=== PATIENT | male | born 1980 | race Caucasian/White ===

== ENCOUNTER 2016-10-18 20:18 | Emergency (ER) | payer OTHER ==
[~2016-10-18] VITALS: Ht 180.3 cm; Wt 91.6 kg
[~2016-10-18 20:18] MED LIST: ULT/50 PO
[2016-10-18 20:27] VITALS: Ht 180.3 cm; Wt 91.6 kg
[2016-10-18] MEDS ORDERED: KETOROLAC TROMETHAMINE 60 MG/2 ML VIAL IM STA (21:32)
[2016-10-18] MEDS ORDERED: HYDROCODONE/ACETAMOPHEN 5/325MG TAB PO STA (21:32)
--- NOTE | 2016-10-18 21:54 | DIAGNOSTIC IMAGING REPORT ---
LUMBAR SPINE 5 VIEWS HISTORY: Back pain lbp COMPARISON: None. FINDINGS: There is no fracture. No subluxation. Disc spaces are preserved. IMPRESSION: No fracture or subluxation within the lumbar spine. Electronically signed by: Giorgio Ascencio M.D. 10/18/2016 9:53 PM Dictated Date/Time: 10/18/2016 9:52 PM
--- NOTE | 2016-10-18 22:07 | EMERGENCY ROOM VISIT NOTE ---
ED Visit Note First contact with patient: 20:43 CHIEF COMPLAINT: Low back pain since this afternoon HISTORY OF PRESENT ILLNESS: Patient is a 36-year-old white male who presents to the emergency department for evaluation of low back pain that started this afternoon. He denies any inciting incident or trauma to the back. He notes pain in the midline of his low spine does not radiate. It is worse with movement. He tried taking 2 Aleve without relief. He denies any history of low back problems. He reports that he was shoveling stone a week and a half ago but otherwise denies any unusual activity prior to the onset of his pain. He rates his pain a 8/10. He denies any radiation of the pain to the leg or to the buttocks. No numbness, tingling or weakness into the lower extremities. No bowel or bladder incontinence. No saddle anesthesias. He denies any urinary symptoms. REVIEW OF SYSTEMS: Review of systems as per HPI. All other systems reviewed were negative. 10 systems reviewed. PMH: Electronic medical records are reviewed and summarized as above/below. See Problem List. SOCIAL HISTORY: Patient lives at home. Former smoker. PHYSICAL EXAM: Vital Signs: Reviewed Nurse's notes. MENTAL STATUS: Uncomfortable appearing 36-year-old white male who was awake and alert and laying on the gurney in mild distress due to his back pain. HEART: Regular rate and rhythm. LUNGS: Clear to auscultation. ABDOMEN: Soft, non-tender, no masses or organs felt. Bowel sounds normoactive. BACK: Tenderness in the paraspinous muscles in the lumbar area. No tenderness over the spinous processes of the lumbar vertebrae. He has discomfort with flexion, rotation and lateral bending. LEGS: Normal strength including dorsi-flexion and plantar flexion of the great toes and ankles, flexion and extension of the knees and flexion of the hips.. Negative bilateral straight leg raising, normal and symmetrical knee and ankle reflexes. EMERGENCY DEPARTMENT COURSE: Patient was medicated with Toradol 60 mg IM and [place] 5/325 mg one tablet by mouth. Lumbar spine x-rays were obtained and were unremarkable. Supportive care measures were discussed. MEDICAL DECISION MAKING : I do not suspect acute compression syndrome, cauda equina, diskitis, epidural abscess, hematoma or neurovascular compromise. The patient was discharged home with his significant other driving. He was advised to follow-up with his primary care provider if his symptoms are not improving. He rated his pain a 4/ 10 at discharge. Patient was reviewed in the [facility] Prescription Drug Monitoring Program, and there was no record for this patient. LUMBAR SPINE 5 VIEWS HISTORY: Back pain lbp COMPARISON: None. FINDINGS: There is no fracture. No subluxation. Disc spaces are preserved. IMPRESSION: No fracture or subluxation within the lumbar spine. Problem List Medical Problems: (1) Contusion of mid back Status: Resolved (2) Fall Status: Resolved (3) Left shoulder pain Status: Resolved Surgical Problems: (1) H/O shoulder surgery Status: Resolved Current/Historical Medications Scheduled PRN Cyclobenzaprine Hcl (Flexeril), 10 MG PO TID PRN for Muscle Spasms Hydrocodone/Acetaminophen 5MG/325MG ([place] 5MG/325MG), 1-2 TABLETS PO Q4 PRN for Pain Allergies Coded Allergies: No Known Allergies (Unverified , 10/18/16) Vital Signs Date Time Temp Pulse Resp B/P Pulse Ox O2 Delivery O2 Flow Rate FiO2 10/18/16 22:43 36.8 71 20 128/88 98 10/18/16 22:42 71 20 128/88 98 Room Air 10/18/16 20:27 36.8 71 20 139/81 98 Room Air Medications Administered Medications (Trade) Dose Ordered Sig/Ivy Route Start Time Stop Time Status Last Admin Dose Admin Ketorolac Tromethamine (Toradol Inj) 60 mg NOW STAT IM 10/18/16 21:32 10/18/16 21:33 DC 10/18/16 21:40 60 MG Acetaminophen/ Hydrocodone Bitart ([place] 5/325 Tab) 1 tab NOW STAT PO 10/18/16 21:32 10/18/16 21:34 DC 10/18/16 21:39 1 TAB Acetaminophen/ Hydrocodone Bitart ([place] 5/325mg Home Pack) 1 homepack UD ONCE PO 10/18/16 22:30 10/18/16 22:31 DC 10/18/16 22:38 1 HOMEPACK Cyclobenzaprine HCl (FLEXERIL 10MG Home Pack) 1 homepack UD ONCE PO 10/18/16 22:30 10/18/16 22:31 DC 10/18/16 22:38 1 HOMEPACK Departure Information Impression Primary Impression: Low back pain Prescriptions Cyclobenzaprine Hcl (FLEXERIL) 10 Mg Tab 10 MG PO TID Y for Muscle Spasms, #20 TAB Prov: Renetta Barahona PA 10/18/16 Hydrocodone/Acetaminophen 5MG/325MG ([place] 5MG/325MG) Tab 1-2 TABLETS PO Q4 Y for Pain, #20 TAB For Initial Treatment Prov: Renetta Barahona PA 10/18/16 Referrals David Faria M.D. (PCP) Patient Instructions My [facility] Additional Instructions DO NOT drive, drink alcohol, operate machinery, or perform dangerous activities today. You were given medications in the ER that can affect your ability to safely function or operate a vehicle. Hydrocodone/Acetaminophen ([place]) 5/325 mg: Take 1-2 pills every four hours for breakthrough pain. Avoid alcohol, operating machinery or dangerous equipment, working on ladders or roofs, DRIVING, or situations where being under the influence may be dangerous. It is recommended to use an fsca-[id number]-vnqhggt stool softener such as Colace, 100mg twice daily while taking this medication to avoid constipation. Cyclobenzaprine (Flexeril) 10 mg: Take 1 pills 3 times daily as needed for muscle spasms.. Avoid alcohol, operating machinery or dangerous equipment, working on ladders or roofs, DRIVING, or situations where being under the influence may be dangerous. Ibuprofen(Motrin, Advil) may be used for fever or pain. Use 600mg every six hours as needed. Take with food. Avoid using more than 2400mg in a 24 hour period. Do not use 2400mg per day for more than three consecutive days without physician direction. Prolonged inappropriate use can lead to stomach upset or ulcers. This medication can be taken if you need to drive, work, or perform activities which may be dangerous when taking narcotic pain medication. (AND/OR) Acetaminophen(Tylenol) may be used for fever or pain. Use 1000mg every six hours as needed. Avoid using more than 3000mg in a 24 hour period. This medication can be taken if you need to drive, work, or perform activities which may be dangerous when taking narcotic pain medication. Rest and avoid heavy lifting until your symptoms resolve and then gradually return to full activity. A good rule of thumb is if it hurts your back to perform a certain activity, then it should be avoided until you are healthy again. A heating pad, warm compresses, or a hot shower may help with tight muscles and can be done several times a day as needed. Continue current medications. Return to the ER immediately for any numbness, tingling, severe pain, loss of control of your bowels or bladder, inability to walk, or as needed. Follow up with your primary care physician within 3-5 days for a recheck of your current condition. Problem Qualifiers Primary Impression: Low back pain Chronicity: acute Back pain laterality: midline Sciatica presence: without sciatica Qualified Codes: M54.5 - Low back pain
[2016-10-18] MEDS ORDERED: CYCL10TA6 PO (22:25)
[2016-10-18] MEDS ORDERED: HYDR-5688 PO (22:25)
[2016-10-18] MEDS ORDERED: NORCO 5/325MG HOME PACK PO ONE (22:30)
[2016-10-18] MEDS ORDERED: FLEXERIL HOME PACK 10 MG VIAL PO ONE (22:30)
[2016-10-18 22:43] VITALS: BP 128/88; PULSE 71; TEMP 36.8; O2SAT 98
== END 2016-10-18 22:44 | disposition home or self-care (01) ==
LOC: C.EDB 20:19 → C.EDD 22:44
DX: M54.5 Low back pain (principal); Z87.891 Personal history of nicotine dependence

== ENCOUNTER 2017-02-10 14:31 | Emergency (ER) | payer OTHER ==
[~2017-02-10] VITALS: Ht 180.3 cm; Wt 109.1 kg
[~2017-02-10 14:31] MED LIST changes: +HYDR-5688 PO; -ULT/50 PO
[2017-02-10 14:39] VITALS: Ht 180.3 cm; Wt 109.1 kg
--- NOTE | 2017-02-10 15:49 | DIAGNOSTIC IMAGING REPORT ---
RIGHT KNEE 3 VIEWS HISTORY:36 yearsMaleRight knee pain Right COMPARISON: None available TECHNIQUE: Frontal, crosstable lateral and sunrise views of the right knee. FINDINGS: There is a 5 mm corticated ossicle adjacent to the medial patella. Mild tricompartmental marginal spurring is noted about the knee without significant joint space narrowing. Bone mineralization is within normal limits without acute fracture or dislocation. There is mild soft tissue swelling about the knee without large joint effusion. IMPRESSION: 1. Mild soft tissue swelling about the knee without acute fracture or dislocation. 2. 5 mm corticated ossicle is noted adjacent to the medial patella. The above report was generated using voice recognition software. It may contain grammatical, syntax or spelling errors. Electronically signed by: Mulugeta Cheatham M.D. 02/10/2017 3:48 PM Dictated Date/Time: 02/10/2017 3:46 PM
[2017-02-10] MEDS ORDERED: HYDROCODONE/ACETAMOPHEN 5/325MG TAB PO ONE (16:15)
[2017-02-10] MEDS ORDERED: HYDR-5688 PO (17:18)
--- NOTE | 2017-02-10 17:37 | EMERGENCY ROOM VISIT NOTE ---
ED Visit Note First contact with patient: 15:04 CHIEF COMPLAINT: knee pain HISTORY OF PRESENT ILLNESS: This 36 year old male patient presents to the emergency department after sustaining an injury to the right knee a few days ago. The patient has an extensive history of injury to this knee that has required orthopedic scoping and MRI. He has a known tear of his meniscus medially. The patient denies any other injuries besides their knee. The patient is without swelling or bruising. There is pain medially. They rate the pain as dull and 5/10. The patient states they are able to walk on it. No numbness or tingling. No previous injuries to this knee. No ankle, foot or hip pain. The pain worsens with ambulation and improves with rest. REVIEW OF SYSTEMS: A 6 system review of systems was completed with positives and pertinent negatives listed in the HPI. ALLERGIES: No known allergies MEDICATIONS: No chronic medications PMH: Otherwise healthy SOCIAL HISTORY: History of chronic right knee pain PHYSICAL EXAM: Vital Signs: Reviewed Nurse's notes, vital signs stable. GENERAL : White male, no acute distress, but appears in pain, well-developed, well- nourished. MENTAL STATUS: Alert, oriented to person place and time, and cooperative. MUSCULOSKELETAL: The right knee is minimally swollen. There is no ecchymosis. There is no joint effusion present. The patient is tender medially. There is no joint line tenderness. The patella does not subluxate. Range of motion is normal. Strength of the quads and hamstrings is 5/5. Leanne' s is negative. Caleb's and Anterior Drawer tests are negative. There is no laxity with varus and valgus stressing. The foot and toes are warm and well- perfused. Dorsalis pedis pulse 2+. Sensation to pain and light touch is intact. Capillary refill less than 2 seconds. RIGHT KNEE 3 VIEWS HISTORY:36 yearsMaleRight knee pain Right COMPARISON: None available TECHNIQUE: Frontal, crosstable lateral and sunrise views of the right knee. FINDINGS: There is a 5 mm corticated ossicle adjacent to the medial patella. Mild tricompartmental marginal spurring is noted about the knee without significant joint space narrowing. Bone mineralization is within normal limits without acute fracture or dislocation. There is mild soft tissue swelling about the knee without large joint effusion. IMPRESSION: 1. Mild soft tissue swelling about the knee without acute fracture or dislocation. 2. 5 mm corticated ossicle is noted adjacent to the medial patella. EMERGENCY DEPARTMENT COURSE: Physical exam and history were performed. Nursing notes and EMR were reviewed. The patient appears to have right knee pain for the past several days. He does not have obvious signs of infection. X -ray was obtained and does not show evidence of acute fracture or dislocation. The patient has followed with orthopedics in [facility] for ongoing knee issues. He has a known injury to the medial meniscus, and does have tenderness in this distribution. The patient has a knee brace that he may continue to use from home. I will provide him with crutches as well as a short course of Vicodin for pain control. The patient was otherwise instructed on conservative measures and given additional discharge instructions as below. The patient was pleased with plan of care and rated his discomfort a 1/10 at the time of departure. Problem List Medical Problems: (1) Contusion of mid back Status: Resolved (2) Fall Status: Resolved (3) Left shoulder pain Status: Resolved Surgical Problems: (1) H/O shoulder surgery Status: Resolved Current/Historical Medications Scheduled PRN Hydrocodone/Acetaminophen 5MG/325MG ([place] 5MG/325MG), 1 TABLET PO Q6 PRN for Pain Allergies Coded Allergies: No Known Allergies (Unverified , 10/18/16) Vital Signs Date Time Temp Pulse Resp B/P (MAP) Pulse Ox O2 Delivery O2 Flow Rate FiO2 02/10/17 14:39 36.8 92 17 136/82 96 Room Air Medications Administered Medications (Trade) Dose Ordered Sig/Ivy Route Start Time Stop Time Status Last Admin Dose Admin Acetaminophen/ Hydrocodone Bitart ([place] 5/325 Tab) 1 tab NOW ONCE PO 02/10/17 16:15 02/10/17 16:16 DC 02/10/17 16:09 1 TAB Departure Information Impression Primary Impression: Right knee pain Dispostion Home / Self-Care Condition GOOD Prescriptions Hydrocodone/Acetaminophen 5MG/325MG ([place] 5MG/325MG) Tab 1 TABLET PO Q6 Y for Pain, #12 TAB For Initial Treatment Prov: Robert Lincoln PA-C 02/10/17 Forms HOME CARE DOCUMENTATION FORM, IMPORTANT VISIT INFORMATION Patient Instructions My [facility] Additional Instructions You were seen and evaluated today on an emergency basis only. This is not a substitute for, or an effort to provide, complete comprehensive medical care. It is not possible to recognize and treat all injuries or illnesses in a single emergency department visit. For this reason it is recommended that you followup with your orthopedist by telephone tomorrow to arrange a follow-up in the next week. Continue using your brace. Use your crutches for the next 4-5 days. For baseline pain relief you may alternate ibuprofen and acetaminophen every 4 hours for pain control. Take 600 mg ibuprofen (Advil) and then 4 hours later take 1000 mg acetaminophen (Tylenol). Do not take more than 3000 mg acetaminophen in a single day. [place] (hydrocodone/acetaminophen) 5/325 mg every 6 hours as needed for worsening breakthrough pain. Do not drink or drive on [place]. This medication will likely make you tired. Do not take [place] and Tylenol at the same time as both contain acetaminophen. [place] may cause constipation. You may wish to take an [id number]-[id number]-[id number] stool softener like Colace if this occurs. You are welcome to return to the emergency department anytime with new, worsening, or concerning symptoms.
[2017-02-10 17:46] VITALS: BP 136/82; PULSE 92; TEMP 36.8; O2SAT 96
== END 2017-02-10 17:57 | disposition home or self-care (01) ==
LOC: C.EDB 14:36 → C.EDA 17:57
DX: M25.561 Pain in right knee (principal); G89.29 Other chronic pain

== ENCOUNTER 2017-04-19 12:01 | Emergency (ER) | payer OTHER ==
[~2017-04-19] VITALS: Ht 180.3 cm; Wt 115.8 kg
[2017-04-19 12:09] VITALS: TEMP 36.5; Ht 180.3 cm; Wt 115.8 kg
[2017-04-19] MEDS ORDERED: HYDROCODONE/ACETAMOPHEN 5/325MG TAB PO STA (12:19)
--- NOTE | 2017-04-19 12:47 | DIAGNOSTIC IMAGING REPORT ---
LEFT RIBS UNILATERAL WITH PA CHEST CLINICAL HISTORY: rib injury trauma. Pain. COMPARISON STUDY: None FINDINGS: Normal study IMPRESSION: Normal study The above report was generated using voice recognition software. It may contain grammatical, syntax or spelling errors. Electronically signed by: Giorgio Ascencio M.D. 04/19/2017 12:46 PM Dictated Date/Time: 04/19/2017 12:44 PM
[2017-04-19] MEDS ORDERED: HYDR-5688 PO (12:56)
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
[2017-04-19 13:18] VITALS: BP 122/87; PULSE 81; O2SAT 96
== END 2017-04-19 13:19 | disposition home or self-care (01) ==
LOC: C.EDB 12:02 → C.EDD 13:19
DX: S20.212A Contusion of left front wall of thorax, initial encounter (principal); V57.0XXA Driver of pick-up truck or van injured in collision with fixed or stationary object in nontraffic accident, initial encounter; Y92.821 Forest as the place of occurrence of the external cause; Z87.891 Personal history of nicotine dependence

== ENCOUNTER 2017-06-19 13:19 | Emergency (ER) | payer OTHER ==
[~2017-06-19] VITALS: Ht 182.9 cm; Wt 116.9 kg
[2017-06-19 13:38] VITALS: TEMP 36.6; Ht 182.9 cm; Wt 116.9 kg
[2017-06-19] MEDS ORDERED: MoRPHine SULFATE 10 MG/ML CARP/VIAL IV STA (14:06)
[2017-06-19] MEDS ORDERED: ONDANSETRON INJ 2 MG/ML 2 ML VIAL IV STA (14:06)
[2017-06-19] MEDS ORDERED: KETOROLAC TROMETHAMINE 30 MG/ML VIAL IV STA (14:13)
[2017-06-19 14:26] LABS: BASO % 0.8 %; BASO ABS # 0.04 K/uL (0-0.2); COMPLETE YES; EOS % 1.7 %; IG% 0.2 %; LYMPH % 28.5 %; LYMPH ABS # 1.47 K/uL (1.2-3.4); MEAN CORPUSCULAR HEMOGLOBIN 31.5 pg (25-34); MEAN CORPUSCULAR HGB CONC 34.3 g/dl (32-36); MEAN PLATELET VOLUME 9.5 fL (7.4-10.4); MONO % 11.6 %; NEUT % 57.2 %; PLATELET COUNT 234 K/uL (130-400); RED BLOOD COUNT 5.11 M/uL (4.7-6.1); WHITE BLOOD COUNT 5.16 K/uL (4.8-10.8)
[2017-06-19 14:50] LABS: BLOOD UREA NITROGEN 13 mg/dl (7-18); BUN/CREATININE RATIO 11.9 (10-20); CALCIUM 8.3 mg/dl (8.5-10.1); CARBON DIOXIDE 27 mmol/L (21-32); CHLORIDE 107 mmol/L (98-107); CREATININE 1.06 mg/dl (0.60-1.40); GLUCOSE 89 mg/dl (70-99); POTASSIUM 4.3 mmol/L (3.5-5.1); SODIUM 140 mmol/L (136-145)
[2017-06-19 14:51] LABS: C-REACTIVE PROTEIN < 0.29 mg/dl (0-0.29)
--- NOTE | 2017-06-19 15:22 | DIAGNOSTIC IMAGING REPORT ---
MRI CERVICAL WITHOUT CONTRAST CLINICAL HISTORY: Severe neck pain and left arm numbness. TECHNIQUE: Sagittal and axial T1, T2 and STIR images were obtained. COMPARISON STUDY: No previous studies for comparison. There are no suspicious areas of marrow replacement. No intrinsic cervical cord lesions are visualized. C2-3: There is no evidence of disc bulge or focal herniation. There is no spinal or foraminal stenosis. C3-4: There is no evidence of disc bulge or focal herniation. There is no spinal or foraminal stenosis. C4-5: There are no disc bulges or focal herniations. There is no spinal or foraminal stenosis. C5-6 :There are no disc bulges or focal herniations. There is no spinal or foraminal stenosis. C6-7: There is no evidence of disc bulge or focal herniation. There is no evidence of spinal or foraminal stenosis. C7-T1: There is no evidence of disc bulge or focal herniation. There is no evidence of spinal or foraminal stenosis. There is a maxillary sinus retention cyst. IMPRESSION:Normal MRI of the cervical spine. Electronically signed by: Bob Donaldson M.D. 06/19/2017 3:21 PM Dictated Date/Time: 06/19/2017 3:17 PM
[2017-06-19] MEDS ORDERED: DIAZEPAM 5MG TAB PO STA (15:26)
[2017-06-19] MEDS ORDERED: CYCL10TA6 PO (15:53)
[2017-06-19] MEDS ORDERED: OXYC1TAB3 PO (15:53)
[2017-06-19 16:00] VITALS: BP 134/94; PULSE 60; O2SAT 95
--- NOTE | 2017-06-19 16:11 | EMERGENCY ROOM VISIT NOTE ---
History Report prepared by Saman: Jess Alexis Under the Supervision of: Dr. Jimbo Echols M.D. First contact with patient: 13:59 Chief Complaint: NECK PAIN Stated Complaint: SEVERE NECK PAIN History of Present Illness The patient is a 37 year old male who presents to the Emergency Room with complaints of worsening neck pain beginning a week ago. The patient denies any recent falls or trauma. Presently, the patient rates his pain as a 9/10. When the patient's pain began a week ago he thought he may have just slept on it "wrong". His pain worsens when he moves his head. The patient took Motrin with no relief. The patient reports intermittent numbness in his left arm that radiates to his hand. Pt denies LOC, headache, fevers, chills, diaphoresis, visual changes, chest pain, breathing difficulties, nausea, vomiting, abdominal pain, back pain, melena, hematochezia, urinary symptoms, weakness, lymphadenopathy, rash, or other complaints. Source of History: patient Onset: a week ago Position: neck Symptom Intensity: 9/10 Timing: worsening Modifying Factors (Worsening): movement Modifying Factors (Relieving): other (none) Associated Symptoms: + neck pain, + numbness (in left arm) Review of Systems See HPI for pertinent positives and negatives. A total of ten systems were reviewed and were otherwise negative. Past Medical & Surgical Medical Problems: (1) Contusion of mid back (2) Fall (3) Left shoulder pain (4) No Known Active Medical Problems Surgical Problems: (1) H/O shoulder surgery Family History No pertinent family history stated. Social History Smoking Status: Never Smoker Marital Status: in relationship Housing Status: lives with significant other Current/Historical Medications Scheduled PRN Cyclobenzaprine Hcl (Flexeril), 10 MG PO TID PRN for Muscle Spasms Oxycodone Ir (Roxicodone Ir), 1-2 TAB PO Q4H PRN for Pain Allergies Coded Allergies: No Known Allergies (Unverified , 06/19/17) Physical Exam Vital Signs Date Time Temp Pulse Resp B/P (MAP) Pulse Ox O2 Delivery O2 Flow Rate FiO2 06/19/17 16:00 60 18 134/94 95 06/19/17 15:26 63 18 116/89 96 Room Air 06/19/17 13:38 36.6 69 18 159/110 98 Room Air Physical Exam GENERAL: Awake, alert, uncomfortable-appearing, in no distress HENT: Normocephalic, atraumatic. Oropharynx unremarkable. EYES: Normal conjunctiva. Sclera non-icteric. NECK: ROM limited, mild cervical tenderness, positive compression test, mild relief with distraction. RESPIRATORY: Clear to auscultation. CARDIAC: Regular rate, normal rhythm. Extremities warm and well perfused. Pulses equal. ABDOMEN: Soft, non-distended. No tenderness to palpation. No rebound or guarding. No masses. RECTAL: Deferred. MUSCULOSKELETAL: Chest examination reveals no tenderness. The back is symmetrical on inspection without obvious abnormality. There is no CVA tenderness to palpation. No joint edema. LOWER EXTREMITIES: Calves are equal size bilaterally and non-tender. No edema. No discoloration. NEURO: Normal sensorium. No sensory or motor deficits noted. SKIN: No rash or jaundice noted. Medical Decision & Procedures ER Provider Diagnostic Interpretation: Radiology results as stated below per my review and radiologist interpretation: MRI CERVICAL WITHOUT CONTRAST COMPARISON STUDY: No previous studies for comparison. There are no suspicious areas of marrow replacement. No intrinsic cervical cord lesions are visualized. C2-3: There is no evidence of disc bulge or focal herniation. There is no spinal or foraminal stenosis. C3-4: There is no evidence of disc bulge or focal herniation. There is no spinal or foraminal stenosis. C4-5: There are no disc bulges or focal herniations. There is no spinal or foraminal stenosis. C5-6 :There are no disc bulges or focal herniations. There is no spinal or foraminal stenosis. C6-7: There is no evidence of disc bulge or focal herniation. There is no evidence of spinal or foraminal stenosis. C7-T1: There is no evidence of disc bulge or focal herniation. There is no evidence of spinal or foraminal stenosis. There is a maxillary sinus retention cyst. IMPRESSION:Normal MRI of the cervical spine. Electronically signed by: Bob Donaldson M.D. Laboratory Results 06/19/17 14:15 Red Blood Count 5.11, Mean Corpuscular Volume 92.0, Mean Corpuscular Hemoglobin 31.5, Mean Corpuscular Hemoglobin Concent 34.3, Mean Platelet Volume 9.5, Neutrophils (%) (Auto) 57.2, Lymphocytes (%) (Auto) 28.5, Monocytes (%) (Auto) 11.6, Eosinophils (%) (Auto) 1.7, Basophils (%) (Auto) 0.8, Neutrophils # (Auto ) 2.95, Lymphocytes # (Auto) 1.47, Monocytes # (Auto) 0.60, Eosinophils # (Auto ) 0.09, Basophils # (Auto) 0.04 06/19/17 14:15 Test 06/19/17 14:15 White Blood Count 5.16 K/uL (4.8-10.8) Red Blood Count 5.11 M/uL (4.7-6.1) Hemoglobin 16.1 g/dL (14.0-18.0) Hematocrit 47.0 % (42-52) Mean Corpuscular Volume 92.0 fL (80-100) Mean Corpuscular Hemoglobin 31.5 pg (25-34) Mean Corpuscular Hemoglobin Concent 34.3 g/dl (32-36) Platelet Count 234 K/uL (130-400) Mean Platelet Volume 9.5 fL (7.4-10.4) Neutrophils (%) (Auto) 57.2 % Lymphocytes (%) (Auto) 28.5 % Monocytes (%) (Auto) 11.6 % Eosinophils (%) (Auto) 1.7 % Basophils (%) (Auto) 0.8 % Neutrophils # (Auto) 2.95 K/uL (1.4-6.5) Lymphocytes # (Auto) 1.47 K/uL (1.2-3.4) Monocytes # (Auto) 0.60 K/uL (0.11-0.59) Eosinophils # (Auto) 0.09 K/uL (0-0.5) Basophils # (Auto) 0.04 K/uL (0-0.2) RDW Standard Deviation 43.2 fL (36.4-46.3) RDW Coefficient of Variation 12.9 % (11.5-14.5) Immature Granulocyte % (Auto) 0.2 % Immature Granulocyte # (Auto) 0.01 K/uL (0.00-0.02) Erythrocyte Sedimentation Rate 3 mm/hr (0-14) Anion Gap 6.0 mmol/L (3-11) Est Creatinine Clear Calc Drug Dose 128.4 ml/min Estimated GFR () 104.9 Estimated GFR (Non- 90.5 BUN/Creatinine Ratio 11.9 (10-20) Calcium Level 8.3 mg/dl (8.5-10.1) C-Reactive Protein < 0.29 mg/dl (0-0.29) Laboratory results reviewed by me Medications Administered Medications (Trade) Dose Ordered Sig/Ivy Route Start Time Stop Time Status Last Admin Dose Admin Ondansetron HCl (Zofran Inj) 4 mg NOW STAT IV 06/19/17 14:06 06/19/17 14:09 DC 06/19/17 14:25 4 MG Morphine Sulfate (MoRPHine SULFATE INJ) 8 mg NOW STAT IV 06/19/17 14:06 06/19/17 14:09 DC 06/19/17 14:25 8 MG Ketorolac Tromethamine (Toradol Inj) 10 mg NOW STAT IV 06/19/17 14:13 06/19/17 14:14 DC 06/19/17 14:25 10 MG Diazepam (Valium Tab) 10 mg NOW STAT PO 06/19/17 15:26 06/19/17 15:28 DC 06/19/17 15:36 10 MG ED Course 1404: The patient was evaluated in room C10. A complete history and physical exam was performed. 1406: Morphine Sulfate 8 mg IV, Zofran Inj 4 mg IV. 1413: Toradol Inj 10 mg IV. 1526: Valium Tab 10 mg PO. 1538: I updated the patient on his MRI results, he is feeling better. 1605: I reevaluated the patient. Discussed results and discharge instructions: He verbalized understanding and agreement. The patient is ready for discharge. Medical Decision Triage Nursing notes reviewed. The patient's presentation and history were concerning for neck pain. Etiologies such as cervical strain, herniated disc, epidural abscess, osteomyelitis, fracture, metastatic disease, infection, gastrointestinal, vascular, as well as others were entertained. The patient was evaluated. He complained of neck pain that has increased. It hurts with movement . It is better with rest. He has pain at sometimes extends into the arm. He has occasional numbness in the left arm. He was treated with morphine and Zofran. He was doing better with this. He is also given Toradol. The patient noted some increased spasms. This occurred after MRI. He was given a dose of oral Valium. He is blood work and imaging did not reveal any abnormal findings. He is neurologically intact. He seems to be most consistent with muscular spasms. I discussed conservative management with the patient. The patient felt comfortable. If he worsens in any way he will be back. A small prescription for oxycodone and Flexeril written. Heat, NSAIDs and Tylenol were also instructed. By the evaluation outlined above other emergent etiologies such as those listed in the differential, as well as others, were deemed relatively unlikely. The patient was educated about the findings as listed above. All questions were answered and the patient was pleased with the treatment. Return instructions were outlined and the patient was discharged in stable condition. The patient was referred to his PCP for follow-up for a recheck of the current condition. [place] Drug Monitoring Program Search Results: patient reviewed within database, no issues identified Blood Pressure Screening Patient's blood pressure: Elevated blood pressure Blood pressure disposition: Referred to PCP Impression Primary Impression: Neck pain Scribe Attestation The scribe's documentation has been prepared under my direction and personally reviewed by me in its entirety. I confirm that the note above accurately reflects all work, treatment, procedures, and medical decision making performed by me. Departure Information Dispostion Home / Self-Care Prescriptions Oxycodone Ir (Roxicodone Ir) 5 Mg Tab 1-2 TAB PO Q4H Y for Pain, #8 TAB Prov: Jimbo Echols MD 06/19/17 Cyclobenzaprine Hcl (FLEXERIL) 10 Mg Tab 10 MG PO TID Y for Muscle Spasms, #12 TAB Prov: Jimbo Echols MD 06/19/17 Referrals David Mar D.O. (PCP) Forms HOME CARE DOCUMENTATION FORM, IMPORTANT VISIT INFORMATION, WORK / SCHOOL INSTRUCTIONS Patient Instructions My [facility] Additional Instructions NECK PAIN/INJURY INSTRUCTIONS: DO NOT drive, drink alcohol, operate machinery, or perform dangerous activities today. You were given medications in the ER that can affect your ability to safely function or operate a vehicle. Oxycodone (OxyIR) 5mg: Take 1-2 pills every four hours for breakthrough pain. Avoid alcohol, operating machinery or dangerous equipment, working on ladders or roofs, DRIVING, or situations where being under the influence may be dangerous. It is recommended to use an [id number]-[id number] stool softener such as Colace, 100mg twice daily while taking this medication to avoid constipation. Flexeril 10 mg 3 times a day as needed for muscle spasm. Do not take and dry Ibuprofen(Motrin, Advil) may be used for fever or pain. Use 600mg every six hours as needed. Take with food. Avoid using more than 2400mg in a 24 hour period. Do not use 2400mg per day for more than three consecutive days without physician direction. Prolonged inappropriate use can lead to stomach upset or ulcers. This medication can be taken if you need to drive, work, or perform activities which may be dangerous when taking narcotic pain medication. (AND/OR) Acetaminophen(Tylenol) may be used for fever or pain. Use 1000mg every six hours as needed. Avoid using more than 4000mg in a 24 hour period. This medication can be taken if you need to drive, work, or perform activities which may be dangerous when taking narcotic pain medication. Rest and avoid heavy lifting until your symptoms resolve and then gradually return to full activity. A good rule of thumb is if it hurts your neck to perform a certain activity, then it should be avoided until you are healthy again. A heating pad, warm compresses, or a hot shower may help with tight muscles and can be done several times a day as needed. Continue current medications. Return to the ER immediately for any numbness, tingling, severe pain, loss of control of your bowels or bladder, inability to walk, or as needed. Follow up with your primary clinic within 3-5 days for a recheck of your current condition.
== END 2017-06-19 16:00 | disposition home or self-care (01) ==
LOC: C.EDB 13:20 → C.EDC 16:00
DX: M54.2 Cervicalgia (principal)

== ENCOUNTER 2017-06-22 12:31 | Emergency (ER) | payer OTHER ==
[~2017-06-22] VITALS: Ht 182.9 cm; Wt 110.0 kg
[~2017-06-22 12:31] MED LIST changes: +CYCL10TA6 PO; -HYDR-5688 PO; +OXYC1TAB3 PO
[2017-06-22 12:35] VITALS: TEMP 36.8; Ht 182.9 cm; Wt 110.0 kg
--- NOTE | 2017-06-22 12:46 | EMERGENCY ROOM VISIT NOTE ---
History Report prepared by Saman: Johanny Moreno Under the Supervision of: Dr. Juan David Ring D.O. First contact with patient: 12:36 Chief Complaint: BACK PAIN Stated Complaint: NECK AND BACK PAIN History of Present Illness The patient is a 37 year old male who presents to the Emergency Room with complaints of neck pain. His neck pain started a week ago when he woke up with it from sleeping. He notes the pain is fairly constant but does worsen in severity. He was seen here several days ago and was prescribed Flexeril and OxyIR 5 mg orally following having a negative MRI. Associated with the neck pain he does have some intermittent paresthesias on the dorsal aspect of his left hand including all 5 digits. No recent trauma, fevers above 100.4, headaches, history of cancer, IV drug use or any other complaints. Denies any weakness in the arms and legs. Denies any recent heavy lifting. He does work cleaning houses for living but notes that this was not associated with work as he woke up with it. Pt denies change in vision, chest pain, shortness of breath , nausea, vomiting, diarrhea, pain with urination, and melena. Source of History: patient Onset: one week ago Position: neck Timing: constant, worsening Note: Associated symptoms: paresthesias Review of Systems See HPI for pertinent positives & negatives. A total of 10 systems reviewed and were otherwise negative. Past Medical & Surgical Medical Problems: (1) Contusion of mid back (2) Fall (3) Left shoulder pain (4) No Known Active Medical Problems Surgical Problems: (1) H/O shoulder surgery Family History Patient reports no known family medical history. Social History Smoking Status: Never Smoker Smokeless Tobacco Use: Yes Alcohol Use: none Marital Status: in relationship Housing Status: lives with significant other Current/Historical Medications Scheduled Prednisone (Prednisone), 50 MG PO DAILY Scheduled PRN Cyclobenzaprine Hcl (Flexeril), 10 MG PO TID PRN for Muscle Spasms Oxycodone Ir (Roxicodone Ir), 1-2 TAB PO Q4H PRN for Pain Allergies Coded Allergies: No Known Allergies (Unverified , 06/22/17) Physical Exam Vital Signs Date Time Temp Pulse Resp B/P (MAP) Pulse Ox O2 Delivery O2 Flow Rate FiO2 06/22/17 14:04 64 16 144/92 98 Room Air 06/22/17 12:35 36.8 93 18 162/111 95 Room Air Physical Exam GENERAL: Sitting up in bed, moderate distress with head facing midline. EYE EXAM: normal conjunctiva. PERRL and EOM's grossly intact. OROPHARYNX: no exudate, no erythema, lips, buccal mucosa, and tongue normal and mucous membranes are moist NECK: Significant tenderness with range of motion of neck greater than 30 to the left/right/upper/down. Tenderness tracks from the base of the occiput in the paraspinal and midline into the upper thoracic region. LUNGS: Clear to auscultation. Normal chest wall mechanics HEART: no murmurs, S1 normal and S2 normal ABDOMEN: abdomen soft, non-tender, normo-active bowel sounds, no masses, no rebound or guarding. BACK: Tenderness and palpation from cervical to upper thoracic region in the midline and paraspinal region. SKIN: no rashes and no bruising UPPER EXTREMITIES: Flexion and extension at the shoulders, elbows, wrist, grasp and abduction 5 out of 5 bilaterally, gross sensations intact, radial pulses 2/4 LOWER EXTREMITIES: No pitting edema. NEURO EXAM: Normal sensorium, cranial nerves II-XII grossly intact, normal speech, no weakness of arms, no weakness of legs. Medical Decision & Procedures ER Provider Diagnostic Interpretation: Radiology results as stated below per my review and the radiologist's interpretation: THORACIC SPINE 3 VIEWS ROUTINE HISTORY: Pain t spine pain COMPARISON: None. FINDINGS: There is no fracture. Mild S shaped scoliosis. Mild degenerative disc change. IMPRESSION: No fracture or subluxation within the thoracic spine. Mild degenerative disc change. Mild scoliosis. The above report was generated using voice recognition software. It may contain grammatical, syntax or spelling errors. Electronically signed by: Giorgio Ascencio M.D. 06/22/2017 1:38 PM Dictated Date/Time: 06/22/2017 1:37 PM Laboratory Results 06/22/17 13:40 Red Blood Count 5.47, Mean Corpuscular Volume 89.8, Mean Corpuscular Hemoglobin 31.3, Mean Corpuscular Hemoglobin Concent 34.8, Mean Platelet Volume 9.5, Neutrophils (%) (Auto) 58.8, Lymphocytes (%) (Auto) 29.3, Monocytes (%) (Auto) 10.3, Eosinophils (%) (Auto) 0.7, Basophils (%) (Auto) 0.7, Neutrophils # (Auto ) 2.50, Lymphocytes # (Auto) 1.25, Monocytes # (Auto) 0.44, Eosinophils # (Auto ) 0.03, Basophils # (Auto) 0.03 06/22/17 13:40 Test 06/22/17 13:40 White Blood Count 4.26 K/uL (4.8-10.8) Red Blood Count 5.47 M/uL (4.7-6.1) Hemoglobin 17.1 g/dL (14.0-18.0) Hematocrit 49.1 % (42-52) Mean Corpuscular Volume 89.8 fL (80-100) Mean Corpuscular Hemoglobin 31.3 pg (25-34) Mean Corpuscular Hemoglobin Concent 34.8 g/dl (32-36) Platelet Count 248 K/uL (130-400) Mean Platelet Volume 9.5 fL (7.4-10.4) Neutrophils (%) (Auto) 58.8 % Lymphocytes (%) (Auto) 29.3 % Monocytes (%) (Auto) 10.3 % Eosinophils (%) (Auto) 0.7 % Basophils (%) (Auto) 0.7 % Neutrophils # (Auto) 2.50 K/uL (1.4-6.5) Lymphocytes # (Auto) 1.25 K/uL (1.2-3.4) Monocytes # (Auto) 0.44 K/uL (0.11-0.59) Eosinophils # (Auto) 0.03 K/uL (0-0.5) Basophils # (Auto) 0.03 K/uL (0-0.2) RDW Standard Deviation 41.3 fL (36.4-46.3) RDW Coefficient of Variation 12.6 % (11.5-14.5) Immature Granulocyte % (Auto) 0.2 % Immature Granulocyte # (Auto) 0.01 K/uL (0.00-0.02) Anion Gap 8.0 mmol/L (3-11) Est Creatinine Clear Calc Drug Dose 139.0 ml/min Estimated GFR () 119.7 Estimated GFR (Non- 103.3 BUN/Creatinine Ratio 15.1 (10-20) Calcium Level 9.4 mg/dl (8.5-10.1) Laboratory results per my review. Medications Administered Medications (Trade) Dose Ordered Sig/Ivy Route Start Time Stop Time Status Last Admin Dose Admin Diazepam (Valium Inj) 5 mg NOW STAT IV 06/22/17 12:47 06/22/17 12:49 DC 06/22/17 13:47 5 MG Ketorolac Tromethamine (Toradol Inj) 30 mg NOW STAT IV 06/22/17 12:54 06/22/17 12:55 DC 06/22/17 13:46 30 MG Methylprednisolone Sodium Succinate (Solu-Medrol IV) 125 mg NOW STAT IV 06/22/17 13:59 06/22/17 14:00 DC 06/22/17 14:03 125 MG ED Course ED COURSE: Vital signs were reviewed and showed hypertensive The patients medical record was reviewed The above diagnostic studies were performed and reviewed. ED treatments and interventions as stated above. 1236: The patient was evaluated in room A10. A complete history and physical examination was performed. 1247: Ordered Valium Inj 5 mg IV. 1254: Ordered Toradol Inj 30 mg IV. 1334: I reevaluated the patient and he is doing okay and just arrived back from x-ray. 1356: I reevaluated the patient and he is feeling better. 1420: Upon reevaluation, the patient is resting comfortably.I discussed my findings with the patient and he understands and agrees with the treatment plan. Based on the patients age, coexisting illnesses, exam and lab findings the decision to treat as an outpatient was made. The patient remained stable while under my care. The patient appeared well at the time of discharge. Medical Decision Differential diagnoses includes but is not limited to lumbar radiculopathy, muscle strain, facture, cauda equina, mass, and disc herniation. Patient is a 37-year-old male who presents to ER for severe neck pain. This has been present for the past week. It initially started in the cervical region is now radiating into the upper thoracic region. He has intermittent paresthesias in the left upper extremity. He has been taking OxyIR associated with Flexeril without significant improvement. No fevers, trauma, history of cancer. Patient had a negative MRI within the past 2-3 days in the cervical region. Based on his exam I do believe this is most consistent with muscle skeletal neck pain as he appears to be having spasms on exam. He is neurologically intact. With the recent MRI no additional imaging of the cervical region was obtained as this was unremarkable. Previous sed/crp was unremarkable. X-rays of the thoracic region was obtained and show no acute process. Patient was given IV Valium did feel better. He had improved range of motion of the neck. He was very tired. Patient was also given IV Toradol. There are updated bedside. He was discharged to continue OxyIR but most importantly Flexeril as I favor this is muscle skeletal. I did give him a short course of steroids as he does have a radiculopathy down the left upper extremity intermittently. Without focal neural deficit did not feel the need for any additional imaging. No fevers to suggest meningitis. Patient given strict instructions not to take any additional narcotic/muscle relaxers for the next 6-8 hours. Discussed with Pt concerning signs and symptoms to watch out for. Pt was instructed to follow up with their PCP and discussed with the patient their option to return to the ED at anytime for persistent or worsening symptoms. The appropriate anticipatory guidance and out-patient management, including indications for return to the emergency department, were explained at length to the patient and understood. Medication Reconcilliation Current Medication List: was personally reviewed by me Blood Pressure Screening Patient's blood pressure: Elevated blood pressure Blood pressure disposition: Elevated BP felt to be situational, Did not require urgent referral Impression Primary Impression: Muscle spasm Scribe Attestation The scribe's documentation has been prepared under my direction and personally reviewed by me in its entirety. I confirm that the note above accurately reflects all work, treatment, procedures, and medical decision making performed by me. Departure Information Dispostion Home / Self-Care Prescriptions Prednisone (PREDNISONE) 50 Mg Tab 50 MG PO DAILY for 4 Days, TAB Prov: Juan David Ring, DO 06/22/17 Referrals No Doctor, Assigned (PCP) Forms HOME CARE DOCUMENTATION FORM, IMPORTANT VISIT INFORMATION Patient Instructions ED Cervical Radiculopathy, ED Spasm Back No Trauma, My [facility] Additional Instructions Please follow up with your primary care doctor with in the next 24 hours. Any worsening of your symptoms, please return to the ED immediately. This includes any fevers greater than 100.4, worsening pain, chest pain, shortness breath, persistent nausea, vomiting, unable to eat or drink, weakness or numbness in your arms or legs, unable to move your bowels, unable to urinate or any other concerning signs or symptoms from your standpoint. You were given medications during this visit that will inhibit your ability to drive, operate machinery and work. Please do NOT drive, operate machinery, drink alcohol or work for the next 12hrs. Please take Motrin in combination with Flexeril. Please take the steroids as prescribed.
[2017-06-22] MEDS ORDERED: DIAZEPAM INJ 5 MG/ML 2 ML CARP IV STA (12:47)
[2017-06-22] MEDS ORDERED: KETOROLAC TROMETHAMINE 30 MG/ML VIAL IV STA (12:54)
--- NOTE | 2017-06-22 13:40 | DIAGNOSTIC IMAGING REPORT ---
THORACIC SPINE 3 VIEWS ROUTINE HISTORY: Pain t spine pain COMPARISON: None. FINDINGS: There is no fracture. Mild S shaped scoliosis. Mild degenerative disc change. IMPRESSION: No fracture or subluxation within the thoracic spine. Mild degenerative disc change. Mild scoliosis. The above report was generated using voice recognition software. It may contain grammatical, syntax or spelling errors. Electronically signed by: Giorgio Ascencio M.D. 06/22/2017 1:38 PM Dictated Date/Time: 06/22/2017 1:37 PM
[2017-06-22 13:58] LABS: BASO % 0.7 %; BASO ABS # 0.03 K/uL (0-0.2); COMPLETE YES; EOS % 0.7 %; HEMATOCRIT 49.1 % (42-52); IG% 0.2 %; LYMPH % 29.3 %; LYMPH ABS # 1.25 K/uL (1.2-3.4); MEAN CELL VOLUME 89.8 fL (80-100); MEAN CORPUSCULAR HEMOGLOBIN 31.3 pg (25-34); MEAN CORPUSCULAR HGB CONC 34.8 g/dl (32-36); MEAN PLATELET VOLUME 9.5 fL (7.4-10.4); MONO % 10.3 %; NEUT % 58.8 %; PLATELET COUNT 248 K/uL (130-400); RED BLOOD COUNT 5.47 M/uL (4.7-6.1); WHITE BLOOD COUNT 4.26 K/uL (4.8-10.8)
[2017-06-22] MEDS ORDERED: PRED50TA PO (13:59)
[2017-06-22] MEDS ORDERED: METHYLPREDNISOLONE 125 MG VIAL IV STA (13:59)
[2017-06-22 14:04] VITALS: BP 144/92; PULSE 64; O2SAT 98
[2017-06-22 14:21] LABS: BUN/CREATININE RATIO 15.1 (10-20); CALCIUM 9.4 mg/dl (8.5-10.1); CREATININE 0.95 mg/dl (0.60-1.40); POTASSIUM 4.2 mmol/L (3.5-5.1)
== END 2017-06-22 14:36 | disposition home or self-care (01) ==
LOC: C.EDB 12:32 → C.EDA 14:36
DX: M62.838 Other muscle spasm (principal); Z87.828 Personal history of other (healed) physical injury and trauma; Z91.81 History of falling; Z98.890 Other specified postprocedural states

== ENCOUNTER 2017-08-17 16:30 | Emergency (ER) | payer OTHER ==
[~2017-08-17] VITALS: Ht 152.4 cm; Wt 112.8 kg
[~2017-08-17 16:30] MED LIST changes: -CYCL10TA6 PO
[2017-08-17 16:38] VITALS: TEMP 36.5; Ht 152.4 cm; Wt 112.8 kg
[2017-08-17 16:42] VITALS: O2SAT 98
[2017-08-17] MEDS ORDERED: ALBUT/IPRATROP 3MG/0.5MG NEB 3 ML VIAL INH STA (16:44)
--- NOTE | 2017-08-17 16:45 | EMERGENCY ROOM VISIT NOTE ---
History Report prepared by Saman: Juancho Luke Under the Supervision of: Dr. Ciara Gonzáles M.D. First contact with patient: 16:32 Stated Complaint: COUGH, FLU LIKE SX, SOB History of Present Illness The patient is a 37 year old male who presents to the Emergency Room via EMS with complaints of a worsening illness over the past week. He states that he has been coughing, and "cannot breathe". The patient notes that he is currently having the worst illness that he has ever had. He adds that he has had intermittent fevers. The patient states that starting a few days ago, he has had a sore throat with intermittent right ear pain. He notes that he took cough medicine last night, and took Swapna-Corrigan cold medicine this morning. The patient denies any recent long travels. He notes no chronic medical problems, and is a non-smoker. He states that he did not get his flu shot this season. Source of History: patient Onset: Over past week Position: other (global - illness) Symptom Intensity: worst illness ever had Timing: worsening Associated Symptoms: + fevers, + sorethroat, + cough, + SOB Note: Associated symptoms: Intermittent right ear pain. Review of Systems See HPI for pertinent positives & negatives. A total of 10 systems reviewed and were otherwise negative. Past Medical & Surgical Medical Problems: (1) Contusion of mid back (2) Fall (3) Left shoulder pain (4) No Known Active Medical Problems Surgical Problems: (1) H/O shoulder surgery Family History Patient reports no known family medical history. Social History Smoking Status: Never Smoker Alcohol Use: none Marital Status: in relationship Housing Status: lives with significant other Current/Historical Medications Scheduled PRN Oxycodone Ir (Roxicodone Ir), 1-2 TAB PO Q4H PRN for Pain Allergies Coded Allergies: No Known Allergies (Unverified , 06/22/17) Physical Exam Vital Signs Date Time Temp Pulse Resp B/P (MAP) Pulse Ox O2 Delivery O2 Flow Rate FiO2 08/17/17 18:57 102 124/98 98 08/17/17 18:13 90 18 128/72 97 Room Air 08/17/17 16:42 98 Room Air 08/17/17 16:38 36.5 90 16 128/72 98 Room Air Physical Exam Vital signs reviewed. General: Well-appearing 37 year old male, in no significant distress. HEENT: No scleral icterus, PERRLA, neck supple. Atraumatic. Cardiovascular: Regular rate and rhythm, no extra sounds. Pulmonary: Forced expiratory cough. Clear to auscultation bilaterally, normal work of breathing. Abdomen: Soft, nontender, nondistended, positive bowel sounds. Musculoskeletal: Atraumatic, no peripheral edema. Neurologic: Patient awake alert and oriented x 3, full strength in all 4 extremities. Cranial nerves 2 through 12 grossly intact. Skin: Warm, dry, no rash Medical Decision & Procedures ER Provider Diagnostic Interpretation: X-ray results as stated below per interpretation by me and the radiologist: CHEST ONE VIEW PORTABLE CLINICAL HISTORY: cough COMPARISON STUDY: No previous studies for comparison. FINDINGS: The bones soft tissues and hemidiaphragms are normal. The cardiomediastinal silhouette is normal. The lungs are clear. The pulmonary vasculature is normal. IMPRESSION: Negative chest. The above report was generated using voice recognition software. It may contain grammatical, syntax or spelling errors. Electronically signed by: Giorgio Ascencio M.D. 08/17/2017 5:00 PM Dictated Date/Time: 08/17/2017 5:00 PM Laboratory Results 08/17/17 17:10 Red Blood Count 5.58, Mean Corpuscular Volume 89.2, Mean Corpuscular Hemoglobin 32.3, Mean Corpuscular Hemoglobin Concent 36.1, Mean Platelet Volume 10.1, Neutrophils (%) (Auto) 68.0, Lymphocytes (%) (Auto) 19.5, Monocytes (%) (Auto) 11.4, Eosinophils (%) (Auto) 0.9, Basophils (%) (Auto) 0.2, Neutrophils # (Auto ) 3.11, Lymphocytes # (Auto) 0.89, Monocytes # (Auto) 0.52, Eosinophils # (Auto ) 0.04, Basophils # (Auto) 0.01 08/17/17 17:10 Test 08/17/17 16:50 08/17/17 17:10 08/17/17 17:18 Influenza Type A Antigen POS for Influ A (NEG) Influenza Type B Antigen Neg for Influ B (NEG) White Blood Count 4.57 K/uL (4.8-10.8) Red Blood Count 5.58 M/uL (4.7-6.1) Hemoglobin 18.0 g/dL (14.0-18.0) Hematocrit 49.8 % (42-52) Mean Corpuscular Volume 89.2 fL (80-100) Mean Corpuscular Hemoglobin 32.3 pg (25-34) Mean Corpuscular Hemoglobin Concent 36.1 g/dl (32-36) Platelet Count 174 K/uL (130-400) Mean Platelet Volume 10.1 fL (7.4-10.4) Neutrophils (%) (Auto) 68.0 % Lymphocytes (%) (Auto) 19.5 % Monocytes (%) (Auto) 11.4 % Eosinophils (%) (Auto) 0.9 % Basophils (%) (Auto) 0.2 % Neutrophils # (Auto) 3.11 K/uL (1.4-6.5) Lymphocytes # (Auto) 0.89 K/uL (1.2-3.4) Monocytes # (Auto) 0.52 K/uL (0.11-0.59) Eosinophils # (Auto) 0.04 K/uL (0-0.5) Basophils # (Auto) 0.01 K/uL (0-0.2) RDW Standard Deviation 40.0 fL (36.4-46.3) RDW Coefficient of Variation 12.4 % (11.5-14.5) Immature Granulocyte % (Auto) 0.0 % Immature Granulocyte # (Auto) 0.00 K/uL (0.00-0.02) Anion Gap 5.0 mmol/L (3-11) Est Creatinine Clear Calc Drug Dose 92.1 ml/min Estimated GFR () 91.2 Estimated GFR (Non- 78.7 BUN/Creatinine Ratio 10.9 (10-20) Calcium Level 8.8 mg/dl (8.5-10.1) Total Bilirubin 0.5 mg/dl (0.2-1) Direct Bilirubin 0.1 mg/dl (0-0.2) Aspartate Amino Transf (AST/SGOT) 20 U/L (15-37) Alanine Aminotransferase (ALT/SGPT) 30 U/L (12-78) Alkaline Phosphatase 69 U/L (45-117) Total Protein 7.8 gm/dl (6.4-8.2) Albumin 3.7 gm/dl (3.4-5.0) Bedside Troponin I < 0.030 ng/ml (0-0.045) Laboratory results per my review. Medications Administered Medications (Trade) Dose Ordered Sig/Ivy Route Start Time Stop Time Status Last Admin Dose Admin Albuterol/ Ipratropium (Duoneb) 3 ml NOW STAT INH 08/17/17 16:44 08/17/17 16:45 DC 08/17/17 17:15 3 ML ECG Indication: SOB/dyspnea Rate (beats per minute): 79 Rhythm: normal sinus Findings: no acute ischemic change, no ectopy ED Course 1636: Past medical records reviewed. The patient was evaluated in room B6. A complete history and physical examination was performed. 1643: Ordered DuoNeb 3 ml INH. 1739: I reevaluated and updated the patient. 1823: Upon reevaluation, the patient appeared to have improvement of his symptoms. I discussed findings with him. He verbalized agreement of the treatment plan. He was discharged home. Medical Decision Differential diagnosis: Influenza, other viral illness, pneumonia, urinary tract infection, metabolic abnormality, medication effect, cellulitis, meningitis, intra-abdominal source. This patient was evaluated and appeared to be in no significant distress. Physical examination is consistent with a dry cough. Patient was given a DuoNeb treatment. Chest x-ray was performed and is negative. Laboratory work reveals positive influenza A. Patient's symptoms started 3 days ago according to his mother. He is outside of the window for Tamiflu. He will continue conservative management with Tylenol and Motrin orally. He will drink plenty of clear fluids and follow-up with his physician for reevaluation. He will return to the ER for worsening of symptoms or any medical concerns. Medication Reconcilliation Current Medication List: was personally reviewed by me Blood Pressure Screening Patient's blood pressure: Normal blood pressure Impression Primary Impression: Influenza A Scribe Attestation The scribe's documentation has been prepared under my direction and personally reviewed by me in its entirety. I confirm that the note above accurately reflects all work, treatment, procedures, and medical decision making performed by me. Departure Information Dispostion Home / Self-Care Referrals No Doctor, Assigned (PCP) Patient Instructions ED Flu, My [facility] Additional Instructions Diagnosis: Influenza Tylenol 650 mg every 6 hours as needed for pain or fever. Ibuprofen 600 mg every 6 hours as needed for pain or fever with food. Drink plenty of clear fluids. Albuterol 2 puffs every 4 hours as needed for wheezing or cough. Follow-up with your physician in one week for reevaluation. Return to the ER for worsening of symptoms or any medical concerns.
--- NOTE | 2017-08-17 17:01 | DIAGNOSTIC IMAGING REPORT ---
CHEST ONE VIEW PORTABLE CLINICAL HISTORY: cough COMPARISON STUDY: No previous studies for comparison. FINDINGS: The bones soft tissues and hemidiaphragms are normal. The cardiomediastinal silhouette is normal. The lungs are clear. The pulmonary vasculature is normal. IMPRESSION: Negative chest. The above report was generated using voice recognition software. It may contain grammatical, syntax or spelling errors. Electronically signed by: Giorgio Ascencio M.D. 08/17/2017 5:00 PM Dictated Date/Time: 08/17/2017 5:00 PM
[2017-08-17 17:24] LABS: BASO % 0.2 %; BASO ABS # 0.01 K/uL (0-0.2); EOS % 0.9 %; EOS ABS # 0.04 K/uL (0-0.5); HEMATOCRIT 49.8 % (42-52); LYMPH % 19.5 %; LYMPH ABS # 0.89 K/uL (1.2-3.4); MEAN CELL VOLUME 89.2 fL (80-100); MEAN CORPUSCULAR HEMOGLOBIN 32.3 pg (25-34); MEAN CORPUSCULAR HGB CONC 36.1 g/dl (32-36); MEAN PLATELET VOLUME 10.1 fL (7.4-10.4); MONO % 11.4 %; MONO ABS # 0.52 K/uL (0.11-0.59); NEUT ABS # 3.11 K/uL (1.4-6.5); PLATELET COUNT 174 K/uL (130-400); RED CELL DISTRIBUTION WIDTH CV 12.4 % (11.5-14.5); WHITE BLOOD COUNT 4.57 K/uL (4.8-10.8)
[2017-08-17 17:43] LABS: INFLUENZA B ANTIGEN Neg for Influ B (NEG)
[2017-08-17 17:43] LABS: ALBUMIN 3.7 gm/dl (3.4-5.0); CALCIUM 8.8 mg/dl (8.5-10.1); CREATININE 1.19 mg/dl (0.60-1.40); POTASSIUM 3.8 mmol/L (3.5-5.1)
[2017-08-17 17:46] LABS: TOTAL PROTEIN 7.8 gm/dl (6.4-8.2)
[2017-08-17] MEDS ORDERED: ALBUTEROL HFA 8 GM INHALER INH ONE (18:45)
[2017-08-17 18:57] VITALS: BP 124/98; PULSE 102; O2SAT 98
== END 2017-08-17 18:50 | disposition home or self-care (01) ==
LOC: EDBD 16:30 → C.EDB 16:32
DX: J09.X2 Influenza due to identified novel influenza A virus with other respiratory manifestations (principal)